=== PATIENT | female | born 1975 | race Caucasian/White ===

== ENCOUNTER 2025-06-10 20:43 | Emergency (ER) | payer BC ==
[~2025-06-10] VITALS: Ht 167.6 cm; Wt 152.0 kg
[2025-06-10 21:04] VITALS: BP 170/92
--- NOTE | 2025-06-10 22:27 | Physician Documentation ---
History of Present Illness ~ Chief Complaint: Abscess Stated Complaint: BUG BITE Time Seen by MD: 21:13 HPI This is a 50-year-old female who presents with a concern for a abscess to her right hip, patient was seen at an urgent care with an I and D performed two days prior and started on Bactrim, patient reports the area has increased in pain and swelling, patient reports no fever or chills. Medication Reconciliation Allergies: Coded Allergies: No Known Allergies (Unverified , 06/10/25) Scheduled Cephalexin*Monohydrate* (Keflex*), 1 CAP PO QID Review of Systems ROS As stated above in the HPI, otherwise all systems are reviewed and negative. Physical Exam Vital Signs: Temperature: 96.3, Source: Temporal, Heart Rate: 77, Respiratory Rate: 15, BP: 170/92, Pulse Oximetry: 99, Weight: 152.000 Physical Exam VITALS: Reviewed and as above. GENERAL: Alert, nontoxic appearing, no apparent distress. RESPIRATORY: No increased work of breathing, no respiratory distress, speaking in full clear sentences SKIN: Right hip 2 cm incision with small amount of cloudy serosanguineous and purulent drainage, approximately 6 cm of surrounding erythema and induration tender to palpation with no fluctuance, approximately 15 cm round surrounding area erythematous without induration or significant tenderness Progress Results/Orders Results/Orders Completed Orders - ALLAN DUMONT Ceftriaxone 500 Im W/Lidocaine (Rocephin (06/10/25 23:50) Medications Received in ER Medications (Trade) Dose Ordered Sig/Tarik Route PRN Reason Start Time Stop Time Status Last Admin Dose Admin (Rocephin 500MG IM kit (w/1% LIDOcaine)) 500 mg ONCE ONCE IM 06/10/25 23:50 06/10/25 23:51 DC 06/11/25 00:06 500 MG Vital Signs 06/10/25 06/11/25 21:04 00:34 Temp 96.3 98.4 Pulse 77 80 Resp 15 16 B/P (MAP) 170/92 Pulse Ox 99 98 Medical Decision Making Additional information obtaine: N/A Findings MSE performed in triage and patient returned to ED lobby by nursing staff to await available ED room This is a 50-year-old female presented to the emergency department with concern for increased redness surrounding an abscess that was drained two days prior, patient is on Bactrim though was told to return to the emergency department due to the increased redness to the area. It was reassuring patient reported no fever or chills or other systemic symptoms. Patient reports feeling otherwise well. Physical exam demonstrated and incised abscess that is continuing to drain, area of induration surrounds the area without fluctuance, there was a large ring of erythema without significant tenderness or induration which patient reported was new over the last 48 hours. Physical exam was reassuring as there appears to be no deep tissue infection with no deep tenderness on palpation. Had a lengthy conversation with the patient regarding next options including further lab work and with shared decision-making patient will be started on a 2nd antibiotic for broader coverage pending culture results from her primary care office. Patient is otherwise well-appearing and hemodynamically stable and appropriate for outpatient follow up we will be discharged on course of 2nd oral antibiotic to augment the Bactrim she is already on. Provided careful return to care precautions, follow up instructions, and home care instructions which he verbalized understanding of. Differential Dx:Considerations: Include: Abscess, Bacteremia, Cellulitis, Erysipelas, Felon, Gas gangrene, Hidrademitis suppurativa, Impetigo, Lymphangitis, Osteromyelitis, Paronychia, Septicemia Departure Time of Disposition: 23:57 Disposition: 01 HOME / SELF CARE / HOMELESS Impression: Primary Impression: Cellulitis Qualified Codes: L03.115 - Cellulitis of right lower limb Condition: Improved Discharge Instructions: Cellulitis, Adult, [id number] Additional Instructions: Please start these 2nd antibiotic as prescribed, continue taking the previously prescribed antibiotic. Please follow up with the provider who drained the abscess for culture result. Please follow up with your primary care provider in the next few days. Please return to the emergency department for any new or worsening concerning symptoms. Referrals: NO PRIMARY CARE PROVIDER (PCP) Prescriptions Cephalexin*Monohydrate* (Keflex*) 500 Mg Capsule 1 CAP PO QID, #28 CAP Prov: ALLAN DUMONT 06/10/25 Education Educated: Patient, Family Educated regarding: diagnosis, treatment, prognosis, need for follow up Signature Scribe Signature: No scribe Attestation: The note accurately reflects work and decisions made by me.RUBENS Joshua 06/11/25 01:58 ALLAN DUMONT Jun 10, 2025 22:27
[2025-06-10] MEDS ORDERED: CEPH-585 PO (23:57)
[2025-06-11] MEDS: CefTRIAXone 500MG IM Kit w/LIDOcaine IM ONE (00:06)
[2025-06-11 00:34] VITALS: PULSE 80; RESP 16; TEMP 98.4; O2SAT 98
== END 2025-06-11 00:37 | disposition home or self-care (01) ==
LOC: ER 20:44
DX: L03.115 Cellulitis of right lower limb (principal)
CPT/HCPCS: 96372; 99283; J0696